=== PATIENT | female | born 1995 | race Caucasian/White ===

== ENCOUNTER 2017-07-11 20:02 | Outpatient (CLI) | payer MEDICAID ==
[~2017-07-11] VITALS: Ht 170.2 cm; Wt 96.8 kg
[~2017-07-11 20:02] MED LIST: MOTRIN 800800 MG/TAB PO; NORCO 325 MG-51 TAB PO
[2017-07-11 20:17] VITALS: BP 116/71; PULSE 74; TEMP 97.8
[2017-07-11] MEDS ORDERED: PRENATAL MVI (20:21)
[2017-07-11 21:30] VITALS: BP 124/68; PULSE 67
[2017-07-11 22:07] VITALS: BP 109/63; PULSE 65; TEMP 97.8
== END 2017-07-11 22:20 ==
LOC: LDRO 20:02
DX: O62.9 Abnormality of forces of labor, unspecified (principal); Z3A.35 35 weeks gestation of pregnancy

== ENCOUNTER 2017-07-12 03:02 | Outpatient (CLI) | payer MEDICAID ==
[~2017-07-12] VITALS: Ht 170.2 cm; Wt 96.8 kg
[~2017-07-12 03:02] MED LIST changes: +PRENATAL MVI
[2017-07-12 04:00] VITALS: BP 106/61; PULSE 65
[2017-07-12 05:00] VITALS: BP 108/61; PULSE 60
[2017-07-12 05:34] VITALS: BP 105/65; PULSE 72; TEMP 98.2
[2017-07-12 06:00] VITALS: BP 116/59; PULSE 72
[2017-07-12 06:45] VITALS: BP 108/60; PULSE 70; TEMP 97.5
== END 2017-07-12 07:56 | disposition home or self-care (01) ==
LOC: LDRO 03:02
DX: O62.9 Abnormality of forces of labor, unspecified (principal); Z3A.35 35 weeks gestation of pregnancy
CPT/HCPCS: J3105; J7120

== ENCOUNTER 2017-08-09 07:07 | Inpatient (IN) | payer MEDICAID ==
[~2017-08-09] VITALS: Ht 170.2 cm; Wt 100.0 kg
[2017-08-09] VITALS (52 sets, daily range): BP systolic 95–147; BP diastolic 50–78; PULSE 54–98; TEMP 97.4–98.7
[2017-08-09 08:17] LABS: BASO % 0.2 % (0.0-2.0); EOS # 0.1 (0.0-0.7); EOS % 0.6 % (0-4.0); GRAN # 6.6 (1.4-6.5); GRAN % 67.7 % (42.2-75.2); HEMATOCRIT 37.9 % (37.0-47.0); LYMPH # 2.1 (1.2-3.4); LYMPH % 21.4 % (20.0-51.0); MEAN CELL VOLUME 88 fl (80.0-100.0); MEAN CORPUSCULAR HEMOGLOBIN 30 pg (27.0-31.0); MEAN CORPUSCULAR HGB CONC 34 g/dl (33.0-37.0); MEAN PLATELET VOLUME 11.2 fl (7.4-10.4); MONO # 0.9 (0.1-0.6); MONO % 9.6 % (1.7-9.3); PLATELET COUNT 172 K/mm3 (130-400); RED BLOOD COUNT 4.32 M/mm3 (4.10-5.30); REDCELL DISTRIBUTION WIDTH-CV 13.5 % (11.5-14.5)
[2017-08-09] MEDS ORDERED: MOTRIN 800800 MG/TAB PO (12:45)
[2017-08-09] MEDS ORDERED: PERCOCET 325 MG1 TA2 PO (12:45)
[2017-08-10 01:00] VITALS: BP 121/62; PULSE 66; TEMP 98
[2017-08-10 05:15] VITALS: BP 105/52; PULSE 68; TEMP 98.4
[2017-08-10 07:18] LABS: HEMOGLOBIN 10.1 g/dl (12.5-16.0)
[2017-08-10 08:49] VITALS: BP 108/60; PULSE 71; TEMP 98.2
[2017-08-10 16:15] VITALS: BP 108/59; PULSE 63; TEMP 98.3
[2017-08-11 07:10] VITALS: BP 112/50; PULSE 64; TEMP 97.8
== END 2017-08-11 12:50 | disposition home or self-care (01) | DRG 774 ==
LOC: LDR 07:07 → OB 07:07 → LDR 07:10 → OB 21:46
PROVIDERS: Obstetrics & Gynecology
PROC: 10E0XZZ Delivery of Products of Conception, External Approach (ICD-10-PCS; principal; 2017-08-09)
PROC: 0KQM0ZZ Repair Perineum Muscle, Open Approach (ICD-10-PCS; 2017-08-09)
PROC: 3E033VJ Introduction of Other Hormone into Peripheral Vein, Percutaneous Approach (ICD-10-PCS; 2017-08-09)
DX: O66.0 Obstructed labor due to shoulder dystocia (principal); O72.1 Other immediate postpartum hemorrhage; O77.0 Labor and delivery complicated by meconium in amniotic fluid; O70.1 Second degree perineal laceration during delivery; Z3A.39 39 weeks gestation of pregnancy; Z37.0 Single live birth
CPT/HCPCS: J0595; J2210; J2400; J2405; J2590; J7120

== ENCOUNTER 2018-12-21 20:54 | Outpatient (CLI) | payer MEDICAID ==
[~2018-12-21] VITALS: Ht 172.7 cm; Wt 107.7 kg
[~2018-12-21 20:54] MED LIST changes: +PERCOCET 325 MG1 TA2 PO
--- NOTE | 2018-12-21 21:10 | NUR ---
at 38 weeks and 1 day arrives to unit with complaint of contractions every 5 minutes. Pt denies vaginal bleeding or LOF. Reports good movment. Pt denies headaches, blurry vision, or RUQ pain. Pt states she was dilated 250/-3 last week at OB appointment. Pt oriented to room, call light within reach, bed in low and locked position. EFM and toco explained and applied. Vital signs obtained. SVE 250/-3. Admission assessment started. Pt and spouse updated on plan of care.
[2018-12-21 21:30] VITALS: BP 123/60; PULSE 72; TEMP 98.2
--- NOTE | 2018-12-21 22:45 | NUR ---
Cervix unchanged after 1 hour. Discharge instructions and return precautions reviewed with patient. Pt verbalized understanding. Pt seen ambulating off unit with spouse.
== END 2018-12-21 22:45 | disposition home or self-care (01) ==
LOC: LDRO 20:54
DX: O62.9 Abnormality of forces of labor, unspecified (principal); Z3A.38 38 weeks gestation of pregnancy

== ENCOUNTER 2018-12-24 03:56 | Outpatient (CLI) | payer MEDICAID ==
[~2018-12-24] VITALS: Ht 172.7 cm; Wt 106.4 kg
--- NOTE | 2018-12-24 04:10 | NUR ---
0410- PATIENT PLACED IN LABOR ROOM #4, EFM APPLIED, VSS. PATIENT BEING SEEN TODAY DUE TO DECREASED MOVEMENT SINCE 3AM AND CONTRACTIONS Q5-6 MINUTES APART SINCE MIDNIGHT. PATIENT HAD MEMBRANES SWEPT IN OFFICE TODAY PER DR. FLORES AT 3PM ON 12/23/18. PATIENT DENIES ANY LEAKAGE OF FLUID OR VAGINAL BLEEDING, JUST MUCUS.
[2018-12-24 04:20] VITALS: BP 111/67; PULSE 72; TEMP 98.5
[2018-12-24 04:38] VITALS: BP 111/67; PULSE 72; TEMP 98.5
[2018-12-24 04:43] VITALS: BP 106/65; PULSE 70
== END 2018-12-24 04:55 | disposition home or self-care (01) ==
LOC: LDRO 03:56
DX: O36.8130 Decreased fetal movements, third trimester, not applicable or unspecified (principal); O62.9 Abnormality of forces of labor, unspecified; Z3A.38 38 weeks gestation of pregnancy

== ENCOUNTER 2018-12-30 07:01 | Inpatient (IN) | payer MEDICAID ==
[~2018-12-30] VITALS: Ht 170.2 cm; Wt 106.4 kg
[2018-12-30] VITALS (10 sets, daily range): BP systolic 104–125; BP diastolic 54–73; PULSE 59–84; TEMP 97.7–98.6
--- NOTE | 2018-12-30 07:10 | NUR ---
To labor and delivery. Here for induction. Assessment done, questions offered and answered.
[2018-12-30 08:12] LABS: BASO % 0.4 % (0.0-2.0); EOS # 0.1 (0.0-0.7); EOS % 0.7 % (0-4.0); GRAN # 5.1 (1.4-6.5); GRAN % 66.7 % (42.2-75.2); HEMOGLOBIN 11.1 g/dl (12.5-16.0); LYMPH # 1.8 (1.2-3.4); LYMPH % 23.1 % (20.0-51.0); MEAN CELL VOLUME 82 fl (80.0-100.0); MEAN CORPUSCULAR HEMOGLOBIN 26 pg (27.0-31.0); MEAN CORPUSCULAR HGB CONC 32 g/dl (33.0-37.0); MEAN PLATELET VOLUME 11.2 fl (7.4-10.4); MONO # 0.7 (0.1-0.6); MONO % 8.7 % (1.7-9.3); PLATELET COUNT 168 K/mm3 (130-400); REDCELL DISTRIBUTION WIDTH-CV 12.5 % (11.5-14.5)
[2018-12-30 08:28] LABS: HEMATOCRIT 34.4 % (37.0-47.0)
--- NOTE | 2018-12-30 08:45 | NUR ---
Dr. Muller here, visits with family. [address] Muller, moderate amount of clear fluid.
--- NOTE | 2018-12-30 09:15 | NUR ---
0920 Rests in bed, alert. Ambulates to the bathroom. Off the monitor at this time. Moves around in room.
--- NOTE | 2018-12-30 10:15 | NUR ---
Rests in bed, alert. Breathes through contractions. Spouse at bedside.
--- NOTE | 2018-12-30 12:00 | NUR ---
Rests in bed, alert. Moans through contractions. Denies wanting any pain medication. Spouse and friend at bedside coaching.
--- NOTE | 2018-12-30 12:45 | NUR ---
1324 Dr. Muller here, sve done. Reports dilated to nine. 1330 Dr. Muller back to room. Patient complete.1332 Pushes with contractions. 1337 Spontaneous delivery of baby girl by Dr. Muller with ten second shoulder. Head down, legs back. 1339 Spontaneous delivery of placenta by Dr. Muller. Iv not working. 1345 Pitocin 10 luann units im given to left anterior thigh as ordered. 1348 Methergine 10 mg im given to right thigh as ordered.
--- NOTE | 2018-12-30 14:22 | NUR ---
Cytotec 800 mcg per rectal as ordered for bleeding.
--- NOTE | 2018-12-30 14:45 | NUR ---
Rests in bed, alert, holds baby. Denies any needs at this time.
--- NOTE | 2018-12-30 17:00 | NUR ---
Rests in bed, alert. Denies any needs at this time.
[2018-12-30] MEDS ORDERED: PERCOCET 325 MG1 TA2 PO (17:48)
[2018-12-30] MEDS ORDERED: MOTRIN 800800 MG/TAB PO (17:48)
[2018-12-31 01:30] VITALS: BP 113/57; PULSE 58; TEMP 97.9
[2018-12-31 08:31] VITALS: BP 101/59; PULSE 69
== END 2018-12-31 16:18 | disposition home or self-care (01) | DRG 807 ==
LOC: LDR 07:01 → OB 10:10
PROVIDERS: ADMIT Obstetrics & Gynecology
PROC: 10E0XZZ Delivery of Products of Conception, External Approach (ICD-10-PCS; principal; 2018-12-30)
PROC: 10907ZC Drainage of Amniotic Fluid, Therapeutic from Products of Conception, Via Natural or Artificial Opening (ICD-10-PCS; 2018-12-30)
DX: O66.0 Obstructed labor due to shoulder dystocia (principal); Z37.0 Single live birth; O70.0 First degree perineal laceration during delivery; O62.2 Other uterine inertia; Z3A.39 39 weeks gestation of pregnancy
CPT/HCPCS: J2210; J2590; J7120

== ENCOUNTER 2021-07-11 07:09 | Inpatient (IN) | payer BC ==
[~2021-07-11] VITALS: Ht 170.2 cm; Wt 115.9 kg
[2021-07-14] VITALS (32 sets, daily range): BP systolic 95–159; BP diastolic 50–72; PULSE 59–150; TEMP 97.8–98.2
--- NOTE | 2021-07-14 06:35 | NUR ---
PT AMBULATORY TO L&D UNIT FOR SCHEDULE IOL. PT DENIES LEAKING OF FLUID OR WATER BREAKING, REPORTS POSITIVE MOVEMENT, AND REPORTS FEELING "VERY IRREGULAR" PAINFUL CONTRACTIONS, BUT NOTHING "TIMEABLE." PT ORIENTED TO LABOR ROOM AND EDUCATED ON IOL PLAN OF CARE. DENIES FURTHER QUESTIONS OR CONCERNS AT THIS TIME. CONSENTS SIGNED AND IOL STARTED PER PROTOCOL. EFM TRACING CATEGORY 1 STRIP WITH NO CONTRACTIONS UPON ARRIVAL. WILL CONTINUE TO MONITOR.
[2021-07-14 08:07] LABS: BASO % 0.2 % (0.0-2.0); EOS # 0.1 K/mm3 (0.0-0.7); EOS % 1.5 % (0.0-4.0); GRAN # 5.4 K/mm3 (1.4-6.5); GRAN % 65.2 % (42.2-75.2); HEMOGLOBIN 12.1 g/dl (12.5-16.0); LYMPH # 2.1 K/mm3 (1.2-3.4); LYMPH % 25.3 % (20.0-51.0); MEAN CELL VOLUME 89 fl (80.0-100.0); MEAN CORPUSCULAR HEMOGLOBIN 30 pg (27-31); MEAN CORPUSCULAR HGB CONC 34 g/dl (33.0-37.0); MEAN PLATELET VOLUME 10.9 fl (7.4-10.4); MONO # 0.6 K/mm3 (0.1-0.6); MONO % 7.4 % (1.7-9.3); PLATELET COUNT 166 K/mm3 (130-400); RED BLOOD COUNT 4.08 M/mm3 (4.10-5.30); REDCELL DISTRIBUTION WIDTH-CV 12.9 % (11.5-14.5)
--- NOTE | 2021-07-14 08:08 | NUR ---
AT BEDSIDE ROUNDING ON PATIENT. SVE -80/-2, AROM WITH CLEAR FLUID AT THIS TIME. PT TOLERATED PROCEDURE WELL.
[2021-07-14 08:14] LABS: HEMATOCRIT 36.1 % (37.0-47.0)
--- NOTE | 2021-07-14 09:23 | NUR ---
PT SITTING ON EDGE OF BED FOR EPIDURAL PLACEMENT. DIFFICULTY TRACING EFM/TOCO THROUGHOUT THIS ENCOUNTER DUE TO MATERNAL HABITUS AND POSITIONING. INTERMITTENT TRACING REMAINS CATEGORY 1 STRIP, PT CONTINUES TO DENY FEELING CONTRACTIONS, NO CONTRACTIONS TRACING ON TOCO OR PALPATED AT THIS TIME. 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 VITAL SIGNS STABLE. ASSISTED BACK INTO BED IN LEFT WEDGE POSITION. CATEGORY 1 STRIP NOTED UPON LYING DOWN.
--- NOTE | 2021-07-14 13:25 | NUR ---
1325: SVE ANTERIOR LIP/90/0 STATION. NOTIFIED OF PT'S SVE AND "INCREASED PRESSURE" TO RECTAL AREA. SEE PHYS NOTIFICATION 1327: PT REPORTS SUDDEN URGE TO PUSH AND EXTREME PRESSURE. NOTIFIED TO REPORT TO THE BEDSIDE IMMEDIATELY. SEE PHYS NOTIFICATION. 1331: SVE COMPLETE/+1, ROOM PREPARED FOR DELIVERY. PT ABLE TO BREATHE THROUGH CONTRACTIONS. DENIES PAIN BUT CAN FEEL PRESSURE WITH EPIDURAL. 1344: AT BEDSIDE. PT BEGINS PUSHING. MOVE HEAD WELL. 1347: OF VIABLE MALE PER . PLACED ON MATERNAL ABDOMEN. CARE ASSUMED BY MADHURI TURNER. CORD CLAMPED X2 AND CUT BY FOB. 1351: OF PLACENTA. PITOCIN INFUSING PER PROTOCOL. PERINEUM INTACT FOLLOWING DELIVERY. LOCHIA WNL, NO CLOTS. FUNDUS FIRM AT UMBILICUS. EBL 200CC PER . WILL CONTINUE WITH PP CARES PER PROTOCOL. PT'S VITAL SIGNS STABLE AT THIS TIME.
--- NOTE | 2021-07-14 17:00 | NUR ---
PT REPORTS NUMBNESS AND "FEELING HEAVY STILL" IN LEFT LEG. UNABLE TO RAISE AND HOLD FOR 5 SECONDS. REQUESTING BED PAIN. VOIDS 800CC BLOOD TINGED URINE ON BEDPAN AT THIS TIME. REPORTS IMMEDIATELY RELIEF. EDUCATED TO MOVE LEGS AROUND IN BED TO ENCOURAGE THEM TO WAKE UP FULLY IN PREPARATION TO AMBULATE.
[2021-07-14] MEDS ORDERED: MOTRIN 800800 MG/TAB PO (17:08)
--- NOTE | 2021-07-14 17:30 | NUR ---
PT REPORTS HER LEFT LEG HAS FEELING BACK TO IT. ABLE TO RAISE AND HOLD LEG FOR 5 SECONDS. FUNDUS FIRM AND 2FB BELOW UMBILICUS. LOCHIA SCANT, NO CLOTS. VITAL SIGNS STABLE. ASSISTED TO SITTING POSITION AND EPIDURAL CATHETER REMOVED PER ORDER, TOLERATED PROCEDURE WELL. ABLE TO STAND AT BEDSIDE, THIS NURSE PROVIDED CHYNA CARE, NEW UNDERWEAR, PAD, ICE PACK AND GOWN. PT ABLE TO AMBULATE TO WHEELCHAIR AND ESCORTED TO ROOM 207 WITH ALL BELONGINGS ACCOUNTED FOR TO CONTINUE PP RECOVERY. PT ABLE TO AMBULATE WITH STEADY GAIT FROM WHEELCHAIR TO BED. EDUCATED THAT WE WILL MEASURE 2 MORE VOIDS AND THEN WE WILL REMOVE HER INT. ORIENTED TO ROOM, ASSISTED IN ORDERING SUPPER. DENIES FURTHER QUESTIONS OR CONCERNS. CALL LIGHT WITHIN REACH UPON EXITING ROOM.
[2021-07-15 01:46] VITALS: BP 109/54; PULSE 65; TEMP 97.8
[2021-07-15 07:00] VITALS: BP 106/57; PULSE 63; TEMP 98.5
--- NOTE | 2021-07-15 10:29 | NUR ---
Initial visit; Patient thanked Supervisor [employer] for offering congratulations and God's blessings for the of her son. Supervisor [employer] thanked mom for choosing [facility].
[2021-07-15 12:00] VITALS: BP 109/64; PULSE 58; TEMP 97.9
--- NOTE | 2021-07-15 16:15 | NUR ---
DISCHARGE TEACHING COMPLETED. PATIENT EDUCATED ON PRESCRIPTIONS AND FOLLOW UP APPOINTMENT. QUESTIONS INVITED AND ANSWERED.
== END 2021-07-15 17:00 | disposition home or self-care (01) | DRG 807 ==
LOC: OB 07:09 → LDR 07-14 06:30 → OB 07-14 06:30 → LDR 07-14 06:31 → OB 07-14 07:29
PROVIDERS: ADMIT Obstetrics & Gynecology
PROC: 10E0XZZ Delivery of Products of Conception, External Approach (ICD-10-PCS; principal; 2021-07-14)
PROC: 10907ZC Drainage of Amniotic Fluid, Therapeutic from Products of Conception, Via Natural or Artificial Opening (ICD-10-PCS; 2021-07-14)
PROC: 3E033VJ Introduction of Other Hormone into Peripheral Vein, Percutaneous Approach (ICD-10-PCS; 2021-07-14)
DX: O99.214 Obesity complicating childbirth (principal); Z37.0 Single live birth; O43.893 Other placental disorders, third trimester; O69.81X0 Labor and delivery complicated by cord around neck, without compression, not applicable or unspecified; Z3A.39 39 weeks gestation of pregnancy
CPT/HCPCS: J2590; J7120